=== PATIENT | male | born 1980 | race Caucasian/White ===

== ENCOUNTER 2020-11-02 16:03 | Emergency (ER) | payer SELFPAY ==
[~2020-11-02] VITALS: Ht 193 cm; Wt 73.9 kg
[2020-11-02 16:53] VITALS: BP 143/102
[2020-11-02] MEDS ORDERED: KETOROLAC 30 MG/ML VIAL IM ONE (17:10)
--- NOTE | 2020-11-02 17:10 | NUR ---
C/O 10/10 LEFT LOWER BACK PAIN 2 WEEKS.
[2020-11-02] MEDS ORDERED: IBUP-2213 PO (18:03)
[2020-11-02] MEDS ORDERED: ACET-8386 PO (18:03)
[2020-11-02] MEDS ORDERED: LID5T TP (18:03)
--- NOTE | 2020-11-02 18:19 | NUR ---
Patient discharged with v/s stable. Written and verbal after care instructions given and explained. Patient alert, oriented and verbalized understanding of instructions. Ambulatory with steady gait. All questions addressed prior to discharge. ID band removed. Patient advised to follow up with PMD. Rx of IBUPROFEN ,HYDROCODON-ACETAMINOPHEN LIDODERM, given. Patient educated on indication of medication including possible reaction and side effects. Opportunity to ask questions provided and answered.
[2020-11-02 18:21] VITALS: BP 143/102
== END 2020-11-02 18:19 | disposition home or self-care (01) ==
LOC: MED 16:03
DX: S39.012A Strain of muscle, fascia and tendon of lower back, initial encounter (principal); M47.816 Spondylosis without myelopathy or radiculopathy, lumbar region; I10 Essential (primary) hypertension; Z79.1 Long term (current) use of non-steroidal anti-inflammatories (NSAID); Z79.891 Long term (current) use of opiate analgesic; Z79.899 Other long term (current) drug therapy; X58.XXXA Exposure to other specified factors, initial encounter; Y92.89 Other specified places as the place of occurrence of the external cause; Y93.89 Activity, other specified; Y99.8 Other external cause status
CPT/HCPCS: 72100; 96372; 99283; J1885